=== PATIENT | female | born 1990 | race Caucasian/White ===

== ENCOUNTER 2017-06-02 12:11 | Emergency (ER) | payer MEDICAID ==
[~2017-06-02] VITALS: Ht 175.3 cm; Wt 62.6 kg
[2017-06-02] MEDS ORDERED: FOLIC ACID TAB 1MG (12:32)
[2017-06-02] MEDS ORDERED: FERROUS SULF TAB 325MG (12:32)
[2017-06-02] MEDS ORDERED: PRENATAL TABLET (12:32)
--- NOTE | 2017-06-02 12:41 | NUR ---
Dr Sloan at the bedside for eval and exam.
--- NOTE | 2017-06-02 12:48 | NUR ---
Pt walked out of ER w/ steady gait.
--- NOTE | 2017-06-02 12:48 | NUR ---
Patient discharged to home in stable conditon. Written and verbal after care instructions given. Patient verbalizes understanding of instructions.
[2017-06-02 12:49] VITALS: BP 110/64
== END 2017-06-02 12:50 | disposition home or self-care (01) ==
LOC: ER 12:11
DX: O99.712 Diseases of the skin and subcutaneous tissue complicating pregnancy, second trimester (principal); L60.0 Ingrowing nail; Z3A.17 17 weeks gestation of pregnancy
CPT/HCPCS: 99283; A4663